=== PATIENT | male | born 1945 | race Caucasian/White ===

== ENCOUNTER → 2016-09-25 | Outpatient (CLI) | payer MEDICARE, OTHER ==
[2016-09-25 09:42] LABS: Basophils # (auto) 0.1 uL; Basophils % (auto) 0.5 % (0.0-2.0); Eosinophils # (auto) 0.4 uL; Eosinophils % (auto) 3.5 % (0.0-7.0); Hematocrit 40.4 % (41.0-53.0); Hemoglobin 13.6 g/dL (13.5-17.5); Lymphocytes % (auto) 27.4 % (10.0-50.0); Mean Corpuscular Hemoglobin 29.3 pg (28.0-32.0); Mean Corpuscular Hgb Conc. 33.5 g/dL (32.0-36.0); Mean Corpuscular Volume 87.4 fL (80.0-100.0); Mean Platelet Volume 7.6 fL (7.4-10.4); Monocytes # (auto) 0.7 uL; Monocytes % (auto) 6.7 % (0.0-12.0); Neutrophils # (auto) 6.7 uL; Neutrophils % (auto) 61.9 % (37.0-80.0); Platelet Count (auto) 418 10^3/uL (140-450); Red Cell Distribution Width 13.9 % (11.6-16.0); White Blood Cell 10.9 10^3/uL (4.4-10.8)
[2016-09-25 10:30] LABS: Albumin 3.5 g/dL (3.4-5.0); BUN/Creatinine Ratio 14.8; Bilirubin, Total 0.5 mg/dL (0.2-1.0); Calcium 9.7 mg/dL (8.5-10.1); Potassium 4.9 mmol/L (3.5-5.1); Total Protein 7.8 g/dL (6.4-8.2)
== END | disposition home or self-care (01) ==
LOC: LAB 09:02
PROVIDERS: ATTEND Internal Medicine
DX: E11.65 Type 2 diabetes mellitus with hyperglycemia (principal); I10 Essential (primary) hypertension; I48.2 Chronic atrial fibrillation; E03.9 Hypothyroidism, unspecified
CPT/HCPCS: 36415; 80053; 80061; 82306; 83036; 84443; 85025

== ENCOUNTER → 2016-10-07 | Outpatient (CLI) | payer MEDICARE, OTHER | END | disposition home or self-care (01) | LOC: XYW 09:00 | PROVIDERS: ATTEND Internal Medicine | DX: I50.9 Heart failure, unspecified (principal); I31.3 Pericardial effusion (noninflammatory); R07.9 Chest pain, unspecified | CPT/HCPCS: 93306 ==

== ENCOUNTER → 2016-12-10 | Outpatient (CLI) | payer MEDICARE, OTHER ==
[~2016-12-10] VITALS: Ht 177.8 cm; Wt 120.2 kg
[~2016-12-10] MED LIST: ADENOSINE 101 MG in GIVE UN-DILUTED 0 ML IV ONE
== END | disposition home or self-care (01) ==
LOC: XY 08:02
PROVIDERS: ATTEND Internal Medicine Cardiovascular Disease
DX: I50.9 Heart failure, unspecified (principal)
CPT/HCPCS: 78452; 93017; A9500; J0153

== ENCOUNTER → 2016-12-16 | Outpatient (CLI) | payer MEDICARE, OTHER ==
[2016-12-16 10:40] LABS: BUN/Creatinine Ratio 12.9; Calcium 9.4 mg/dL (8.5-10.1); Potassium 5.3 mmol/L (3.5-5.1)
== END | disposition home or self-care (01) ==
LOC: LAB 09:55
DX: C44.91 Basal cell carcinoma of skin, unspecified (principal)
CPT/HCPCS: 36415; 80048

== ENCOUNTER → 2016-12-22 | Outpatient (CLI) | payer MEDICARE, OTHER ==
[2016-12-22 10:35] LABS: Urine RBC None Seen /hpf (0 - 3)
[2016-12-22 10:37] LABS: Basophils # (auto) 0 uL; Basophils % (auto) 0.3 % (0.0-2.0); CONDITION Y; Eosinophils # (auto) 0.4 uL; Eosinophils % (auto) 3.5 % (0.0-7.0); Hematocrit 36.5 % (41.0-53.0); Hemoglobin 12.4 g/dL (13.5-17.5); Lymphocytes # (auto) 2.4 uL; Lymphocytes % (auto) 21.6 % (10.0-50.0); Mean Corpuscular Hemoglobin 30.1 pg (28.0-32.0); Mean Corpuscular Hgb Conc. 33.8 g/dL (32.0-36.0); Mean Platelet Volume 7.3 fL (7.4-10.4); Monocytes # (auto) 0.9 uL; Monocytes % (auto) 7.6 % (0.0-12.0); Neutrophils # (auto) 7.6 uL; Platelet Count (auto) 439 10^3/uL (140-450); Red Cell Distribution Width 13.9 % (11.6-16.0); White Blood Cell 11.3 10^3/uL (4.4-10.8)
[2016-12-22 10:44] LABS: Urine Bilirubin Negative (Negative); Urine Blood Negative /uL (Negative); Urine Color Yellow (Yellow); Urine Glucose TRACE mg/dL (Normal); Urine Hyaline Cast FEW /lpf (0 - 2); Urine Ketone Negative (Negative); Urine Nitrite Negative (Negative); Urine Urobilinogen Normal (Negative); Urine pH 6.5 (5.0-8.0)
[2016-12-22 10:50] LABS: INR 1.1 (0.9-1.15)
[2016-12-22 10:59] LABS: BUN/Creatinine Ratio 12.3; Calcium 9.5 mg/dL (8.5-10.1); Potassium 4.5 mmol/L (3.5-5.1)
== END | disposition home or self-care (01) ==
LOC: LAB 10:15
PROVIDERS: ATTEND Internal Medicine
DX: I10 Essential (primary) hypertension (principal); E11.9 Type 2 diabetes mellitus without complications
CPT/HCPCS: 36415; 80048; 81001; 83036; 85025; 85610

== ENCOUNTER → 2017-03-23 | Outpatient (CLI) | payer MEDICARE, OTHER ==
[2017-03-23 08:58] LABS: Basophils # (auto) 0.2 uL; Basophils % (auto) 1.1 % (0.0-2.0); Eosinophils # (auto) 0.5 uL; Eosinophils % (auto) 3.4 % (0.0-7.0); Hematocrit 36.4 % (41.0-53.0); Hemoglobin 12.3 g/dL (13.5-17.5); Lymphocytes # (auto) 3.5 uL; Lymphocytes % (auto) 25.9 % (10.0-50.0); Mean Corpuscular Hgb Conc. 33.7 g/dL (32.0-36.0); Mean Platelet Volume 7.1 fL (6.9-10.8); Monocytes # (auto) 1.1 uL; Neutrophils # (auto) 8.3 uL; Neutrophils % (auto) 61.6 % (37.0-80.0); Platelet Count (auto) 471 10^3/uL (140-450); Red Cell Distribution Width 14.1 % (11.8-14.3); White Blood Cell 13.5 10^3/uL (4.4-10.8)
[2017-03-23 09:20] LABS: Albumin 3.3 g/dL (3.4-5.0); BUN/Creatinine Ratio 23.8; Bilirubin, Total 0.4 mg/dL (0.2-1.0); Calcium 9.6 mg/dL (8.5-10.1); Potassium 4.6 mmol/L (3.5-5.1); Total Protein 7.8 g/dL (6.4-8.2)
== END | disposition home or self-care (01) ==
LOC: LAB 08:08
PROVIDERS: ATTEND Internal Medicine Cardiovascular Disease
DX: I50.9 Heart failure, unspecified (principal); I25.10 Atherosclerotic heart disease of native coronary artery without angina pectoris
CPT/HCPCS: 36415; 80053; 80061; 84443; 85025

== ENCOUNTER → 2017-07-27 | Outpatient (CLI) | payer MEDICARE, OTHER ==
[2017-07-27 07:28] LABS: Basophils # (auto) 0.1 uL; Eosinophils # (auto) 0.5 uL; Eosinophils % (auto) 4.1 % (0.0-7.0); Hematocrit 36.2 % (41.0-53.0); Hemoglobin 12.5 g/dL (13.5-17.5); Lymphocytes # (auto) 3.8 uL; Mean Corpuscular Hemoglobin 30.5 pg (28.0-32.0); Mean Corpuscular Hgb Conc. 34.6 g/dL (32.0-36.0); Mean Corpuscular Volume 88.3 fL (80.0-100.0); Neutrophils # (auto) 7.3 uL; Neutrophils % (auto) 56.9 % (37.0-80.0); Platelet Count (auto) 411 10^3/uL (140-450); Red Cell Distribution Width 12.5 % (11.8-14.3); White Blood Cell 12.8 10^3/uL (4.4-10.8)
[2017-07-27 07:58] LABS: Cholesterol 216 mg/dL (< 200); HDL Cholesterol 45 mg/dL (40-59); LDL Cholesterol 137 mg/dL (< 100); Triglycerides 352 mg/dL (< 150)
[2017-08-03 15:06] LABS: Urine Bacteria NONE SEEN /hpf (None Seen); Urine Blood Negative /uL (Negative); Urine Specific Gravity 1.014 (1.001-1.035); Urine WBC <1 /hpf (0 - 3)
== END | disposition home or self-care (01) ==
LOC: LAB 07:07
PROVIDERS: ATTEND Physician Assistant
DX: E16.9 Disorder of pancreatic internal secretion, unspecified (principal); E78.2 Mixed hyperlipidemia; N39.0 Urinary tract infection, site not specified
CPT/HCPCS: 36415; 80061; 81001; 82043; 83036; 85025

== ENCOUNTER 2018-03-30 20:54 | Inpatient (IN) | payer MEDICARE, OTHER ==
[~2018-03-30] VITALS: Ht 177.8 cm; Wt 127.1 kg
[2018-03-30 21:39] LABS: Basophils # (auto) 0.2 uL; Basophils % (auto) 1.3 % (0.0-2.0); Eosinophils # (auto) 0.1 uL; Eosinophils % (auto) 0.7 % (0.0-7.0); Hematocrit 36.9 % (41.0-53.0); Hemoglobin 12.4 g/dL (13.5-17.5); Lymphocytes # (auto) 1.4 uL; Lymphocytes % (auto) 9.3 % (10.0-50.0); Mean Corpuscular Hemoglobin 29.6 pg (28.0-32.0); Mean Corpuscular Hgb Conc. 33.7 g/dL (32.0-36.0); Mean Corpuscular Volume 88.1 fL (80.0-100.0); Monocytes # (auto) 1.1 uL; Monocytes % (auto) 7.3 % (0.0-12.0); Neutrophils # (auto) 12.2 uL; Neutrophils % (auto) 81.4 % (37.0-80.0); Platelet Count (auto) 495 10^3/uL (140-450); Red Blood Cells 4.19 10^6/uL (4.5-5.90); Red Cell Distribution Width 13.9 % (11.8-14.3)
[2018-03-30 21:51] LABS: BUN/Creatinine Ratio 8.8; Calcium 8.9 mg/dL (8.5-10.1); Potassium 4.2 mmol/L (3.5-5.1)
[2018-03-30 21:53] LABS: Bilirubin, Total 0.8 mg/dL (0.2-1.0); Total Protein 7.5 g/dL (6.4-8.2)
[2018-03-30 21:54] LABS: Lactic Acid w/Reflex 2.3 mmol/L (0.4-2.0)
[2018-03-30] MEDS ORDERED: ONDANSETRON HCL 4 MG/2 ML VIAL IV ONE (22:15)
[2018-03-30] MEDS ORDERED: cefTRIAXone 1GM/10ml IVPUSH 10 ML IV ONE (22:15)
[2018-03-30] MEDS ORDERED: VANCOMYCIN 1GM/250ML 250 ML IV ONE (22:15)
[2018-03-30] MEDS ORDERED: MORPHINE SULFATE 4 MG/ML SYR/VIAL IV ONE (22:15)
[2018-03-30 22:38] LABS: INR 1.02 (0.9-1.15); Magnesium 1.8 mg/dL (1.6-2.6); Partial Thromboplastin Time 28.9 sec (23.78-33.04); Prothrombin Time 10.9 sec (9.27-12.13)
[2018-03-31] VITALS (7 sets, daily range): BP systolic 124–158; BP diastolic 61–80
[2018-03-31] MEDS ORDERED: ONDANSETRON HCL 4 MG/2 ML VIAL IV PRN (02:30)
[2018-03-31] MEDS ORDERED: ACETAMINOPHEN 500 MG TAB PO PRN (02:30)
[2018-03-31] MEDS ORDERED: SODIUM CHLORIDE 0.9% 1,000 ML IV ONE (02:30)
[2018-03-31] MEDS ORDERED: DEXTROSE (50%) 50ML SYRG IV PRN (02:30)
[2018-03-31] MEDS ORDERED: RIVA20TA PO (04:44)
[2018-03-31] MEDS ORDERED: METF-370 PO (04:44)
[2018-03-31] MEDS ORDERED: FURO40TA4 PO (04:44)
[2018-03-31] MEDS ORDERED: GABA-339 PO (04:44)
[2018-03-31] MEDS ORDERED: GEMF600T7 PO (04:44)
[2018-03-31] MEDS ORDERED: GLIP-115 PO (04:44)
[2018-03-31] MEDS ORDERED: MET50T GT (04:44)
[2018-03-31] MEDS ORDERED: LEVO88TA4 PO (04:44)
[2018-03-31] MEDS ORDERED: EXENINJ SC (04:44)
[2018-03-31] MEDS ORDERED: POTA20TA53 PO (04:44)
[2018-03-31] MEDS ORDERED: LOSA100T33 PO (04:44)
[2018-03-31] MEDS: CLINDAMYCIN 600MG IV 50 ML IV SCH ×3 (06:27→22:29)
[2018-03-31] MEDS: LEVOTHYROXINE SODIUM 88 MCG TAB PO SCH (06:35)
[2018-03-31] MEDS: InsuLIN REG 1unit/0.01ml Soln (100units/ml) SC SCH ×4 (06:36→22:29)
[2018-03-31] MEDS: ACCU-CHEK COMFORT CURVE STRIP VI SCH ×4 (06:36→22:30)
[2018-03-31] MEDS ORDERED: metFORMIN HYDROCHLORIDE 500 MG TAB PO SCH (07:00)
[2018-03-31 08:02] LABS: Eosinophils # (auto) 0.1 uL; Eosinophils % (auto) 0.5 % (0.0-7.0); Hemoglobin 11.7 g/dL (13.5-17.5); Monocytes # (auto) 1.5 uL; Neutrophils # (auto) 12.1 uL
[2018-03-31 08:04] LABS: Basophils # (auto) 0 uL; Basophils % (auto) 0.3 % (0.0-2.0); Hematocrit 34.5 % (41.0-53.0); Lymphocytes # (auto) 2.3 uL; Lymphocytes % (auto) 14.2 % (10.0-50.0); Mean Corpuscular Hemoglobin 30.1 pg (28.0-32.0); Mean Corpuscular Hgb Conc. 33.9 g/dL (32.0-36.0); Mean Corpuscular Volume 88.7 fL (80.0-100.0); Monocytes % (auto) 9.6 % (0.0-12.0); Neutrophils % (auto) 75.4 % (37.0-80.0); Nucleated Red Blood Cells % 0.1 %; Platelet Count (auto) 472 10^3/uL (140-450); Red Blood Cells 3.89 10^6/uL (4.5-5.90); Red Cell Distribution Width 13.7 % (11.8-14.3)
[2018-03-31 08:20] LABS: BUN/Creatinine Ratio 9.1; Potassium 4.1 mmol/L (3.5-5.1)
[2018-03-31] MEDS: GABAPENTIN 300 MG CAP PO SCH ×2 (09:48→22:29)
[2018-03-31] MEDS: METOPROLOL TARTRATE 50 MG TAB PO SCH ×2 (09:48→22:29)
[2018-03-31] MEDS ORDERED: LOSARTAN POTASSIUM 50 MG TAB PO SCH (10:00)
[2018-03-31] MEDS ORDERED: LABETALOL HCL 5 MG/ML ML 20ML VIAL IV PRN (14:15)
[2018-03-31] MEDS ORDERED: RIVAROXABAN 20 MG TAB PO SCH ×2 (18:00)
[2018-03-31] MEDS: cefTRIAXone 1GM/10ml IVPUSH 10 ML IV SCH (22:29)
[2018-04-01 04:53] VITALS: BP 139/67
[2018-04-01] MEDS: CLINDAMYCIN 600MG IV 50 ML IV SCH ×3 (06:05→21:33)
[2018-04-01] MEDS: LEVOTHYROXINE SODIUM 88 MCG TAB PO SCH (06:05)
[2018-04-01] MEDS: ACCU-CHEK COMFORT CURVE STRIP VI SCH ×4 (06:12→22:14)
[2018-04-01] MEDS: InsuLIN REG 1unit/0.01ml Soln (100units/ml) SC SCH ×4 (06:12→21:33)
[2018-04-01 09:00] VITALS: BP 140/70
[2018-04-01] MEDS: METOPROLOL TARTRATE 50 MG TAB PO SCH ×2 (10:15→21:34)
[2018-04-01] MEDS: GABAPENTIN 300 MG CAP PO SCH ×2 (10:16→21:33)
[2018-04-01 10:53] LABS: Basophils # (auto) 0.1 uL; Basophils % (auto) 0.4 % (0.0-2.0); Eosinophils # (auto) 0.4 uL; Eosinophils % (auto) 2.6 % (0.0-7.0); Hematocrit 33.8 % (41.0-53.0); Hemoglobin 11.3 g/dL (13.5-17.5); Lymphocytes # (auto) 2.5 uL; Mean Corpuscular Hemoglobin 29.7 pg (28.0-32.0); Mean Corpuscular Hgb Conc. 33.5 g/dL (32.0-36.0); Mean Corpuscular Volume 88.5 fL (80.0-100.0); Monocytes # (auto) 1.3 uL; Monocytes % (auto) 9.1 % (0.0-12.0); Neutrophils # (auto) 10.5 uL; Neutrophils % (auto) 70.9 % (37.0-80.0); Platelet Count (auto) 444 10^3/uL (140-450); Red Blood Cells 3.81 10^6/uL (4.5-5.90); Red Cell Distribution Width 13.9 % (11.8-14.3); White Blood Cell 14.9 10^3/uL (4.4-10.8)
[2018-04-01 11:10] LABS: Calcium 8.6 mg/dL (8.5-10.1); Potassium 4.3 mmol/L (3.5-5.1)
[2018-04-01 13:00] VITALS: BP 130/95
[2018-04-01 17:00] VITALS: BP 135/79
[2018-04-01] MEDS ORDERED: RIVAROXABAN 20 MG TAB PO SCH (18:00)
[2018-04-01] MEDS: cefTRIAXone 1GM/10ml IVPUSH 10 ML IV SCH (21:33)
[2018-04-01 21:53] VITALS: BP 117/71
[2018-04-01] MEDS ORDERED: PNEUMOCOCCAL VACC POLYS 25 MCG/0.5 ML VIAL IM ONE (22:00)
[2018-04-01] MEDS ORDERED: INFLUENZA QUAD 2018-2019 0.5 ML SYRG IM ONE (22:00)
[2018-04-01 22:10] VITALS: BP 132/57
[2018-04-02 05:05] VITALS: BP 138/61
[2018-04-02 06:04] LABS: Basophils # (auto) 0.2 uL; Eosinophils # (auto) 0.4 uL; Eosinophils % (auto) 3.8 % (0.0-7.0); Hematocrit 32.8 % (41.0-53.0); Hemoglobin 11.1 g/dL (13.5-17.5); Lymphocytes # (auto) 2.9 uL; Lymphocytes % (auto) 24.8 % (10.0-50.0); Mean Corpuscular Hgb Conc. 33.9 g/dL (32.0-36.0); Mean Corpuscular Volume 88.6 fL (80.0-100.0); Monocytes % (auto) 8.9 % (0.0-12.0); Neutrophils # (auto) 7.1 uL; Neutrophils % (auto) 60.5 % (37.0-80.0); Nucleated Red Blood Cells % 0.1 %; Platelet Count (auto) 396 10^3/uL (140-450); Red Cell Distribution Width 13.6 % (11.8-14.3); White Blood Cell 11.7 10^3/uL (4.4-10.8)
[2018-04-02] MEDS: InsuLIN REG 1unit/0.01ml Soln (100units/ml) SC SCH ×2 (06:26→11:30)
[2018-04-02] MEDS: CLINDAMYCIN 600MG IV 50 ML IV SCH (06:26)
[2018-04-02] MEDS: LEVOTHYROXINE SODIUM 88 MCG TAB PO SCH (06:26)
[2018-04-02] MEDS: ACCU-CHEK COMFORT CURVE STRIP VI SCH ×2 (06:27→11:30)
[2018-04-02 06:35] LABS: Potassium 4.1 mmol/L (3.5-5.1)
[2018-04-02 06:53] LABS: BUN/Creatinine Ratio 16.6; Calcium 8.9 mg/dL (8.5-10.1)
[2018-04-02] MEDS ORDERED: glipiZIDE 5 MG TAB PO SCH (07:00)
[2018-04-02 09:00] VITALS: BP 125/45
[2018-04-02] MEDS ORDERED: CLIN1CAP4 PO (09:30)
[2018-04-02] MEDS: METOPROLOL TARTRATE 50 MG TAB PO SCH (09:56)
[2018-04-02] MEDS: GABAPENTIN 300 MG CAP PO SCH (09:56)
[2018-04-02 10:22] VITALS: BP 125/45
== END 2018-04-02 13:05 | disposition home health service (06) | DRG 871 ==
LOC: ER 20:58 → TELE 20:59 → TELE-WESTW 03-31 03:40 → WEST WING 04-01 09:30
PROVIDERS: ADMIT Nurse Practitioner Family; ATTEND Internal Medicine
DX: A41.9 Sepsis, unspecified organism (principal); N17.0 Acute kidney failure with tubular necrosis; L03.211 Cellulitis of face; L03.213 Periorbital cellulitis; E44.1 Mild protein-calorie malnutrition; Z68.41 Body mass index [BMI] 40.0-44.9, adult; I13.0 Hypertensive heart and chronic kidney disease with heart failure and stage 1 through stage 4 chronic kidney disease, or unspecified chronic kidney disease; K04.7 Periapical abscess without sinus; E11.21 Type 2 diabetes mellitus with diabetic nephropathy; E03.9 Hypothyroidism, unspecified; E11.22 Type 2 diabetes mellitus with diabetic chronic kidney disease; E11.40 Type 2 diabetes mellitus with diabetic neuropathy, unspecified; E66.01 Morbid (severe) obesity due to excess calories; E78.5 Hyperlipidemia, unspecified; I25.10 Atherosclerotic heart disease of native coronary artery without angina pectoris; I48.91 Unspecified atrial fibrillation; I50.9 Heart failure, unspecified; N18.3 Chronic kidney disease, stage 3 (moderate); Z82.3 Family history of stroke; Z82.49 Family history of ischemic heart disease and other diseases of the circulatory system; Z83.3 Family history of diabetes mellitus; Z23 Encounter for immunization; Z90.89 Acquired absence of other organs
CPT/HCPCS: 36415; 70486; 71045; 80048; 80053; 82962; 83036; 83605; 83735; 83880; 84443; 84484; 85025; 85610; 85730; 87040; 90674; 93005; 94761; 96361; 96365; 96375; A6257; J0696; J1815; J2405; J3490

== ENCOUNTER → 2018-04-26 | Outpatient (CLI) | payer MEDICARE, OTHER ==
[~2018-04-26] MED LIST changes: -ADENOSINE 101 MG in GIVE UN-DILUTED 0 ML IV ONE; +CLIN1CAP4 PO; +EXENINJ SC; +FURO40TA4 PO; +GABA-339 PO; +GEMF600T7 PO; +GLIP-115 PO; +LEVO88TA4 PO; +LOSA100T33 PO; +MET50T GT; +METF-370 PO; +POTA20TA53 PO; +RIVA20TA PO
[2018-04-26 08:52] LABS: Albumin 3.1 g/dL (3.4-5.0); BUN/Creatinine Ratio 14.4; Calcium 10.1 mg/dL (8.5-10.1); Potassium 4.7 mmol/L (3.5-5.1)
[2018-04-26 08:56] LABS: Bilirubin, Total 0.6 mg/dL (0.2-1.0); Total Protein 7.7 g/dL (6.4-8.2)
[2018-04-26 09:04] LABS: Basophils # (auto) 0.2 uL; Basophils % (auto) 1.1 % (0.0-2.0); Eosinophils # (auto) 0.7 uL; Eosinophils % (auto) 5.1 % (0.0-7.0); Hematocrit 37.2 % (41.0-53.0); Hemoglobin 12.3 g/dL (13.5-17.5); Lymphocytes # (auto) 2.7 uL; Lymphocytes % (auto) 20.4 % (10.0-50.0); Mean Corpuscular Hemoglobin 29.4 pg (28.0-32.0); Mean Corpuscular Hgb Conc. 33.1 g/dL (32.0-36.0); Mean Corpuscular Volume 88.6 fL (80.0-100.0); Monocytes # (auto) 1.1 uL; Neutrophils # (auto) 8.8 uL; Neutrophils % (auto) 65.4 % (37.0-80.0); Platelet Count (auto) 421 10^3/uL (140-450); Red Cell Distribution Width 13.8 % (11.8-14.3); White Blood Cell 13.4 10^3/uL (4.4-10.8)
[2018-04-26 15:26] LABS: Urine Bacteria NONE SEEN /hpf (None Seen); Urine Blood Negative /uL (Negative); Urine Specific Gravity 1.009 (1.001-1.035); Urine WBC <1 /hpf (0 - 3)
== END | disposition home or self-care (01) ==
LOC: LAB 07:40
PROVIDERS: ATTEND Physician Assistant
DX: Z12.5 Encounter for screening for malignant neoplasm of prostate (principal); I12.9 Hypertensive chronic kidney disease with stage 1 through stage 4 chronic kidney disease, or unspecified chronic kidney disease; E11.22 Type 2 diabetes mellitus with diabetic chronic kidney disease; N18.9 Chronic kidney disease, unspecified; I48.2 Chronic atrial fibrillation; I42.9 Cardiomyopathy, unspecified; E78.1 Pure hyperglyceridemia; I25.5 Ischemic cardiomyopathy; E03.9 Hypothyroidism, unspecified
CPT/HCPCS: 36415; 80053; 80061; 81001; 83036; 84153; 84443; 85025

== ENCOUNTER → 2018-06-03 | Outpatient (CLI) | payer MEDICARE, OTHER | END | disposition home or self-care (01) | LOC: XYW 10:40 | PROVIDERS: ATTEND Internal Medicine Cardiovascular Disease | DX: I25.5 Ischemic cardiomyopathy (principal) | CPT/HCPCS: 93306 ==

== ENCOUNTER → 2019-03-23 | Outpatient (CLI) | payer MEDICARE, OTHER ==
[~2019-03-23] MED LIST changes: -CLIN1CAP4 PO; +CLIN300C8 PO; -GLIP-115 PO; +GLIP5TAB12 PO; +POTA-220 PO; -POTA20TA53 PO
== END | disposition home or self-care (01) ==
LOC: XYW 10:33
PROVIDERS: ATTEND Internal Medicine
DX: I08.8 Other rheumatic multiple valve diseases (principal); I42.9 Cardiomyopathy, unspecified; I13.0 Hypertensive heart and chronic kidney disease with heart failure and stage 1 through stage 4 chronic kidney disease, or unspecified chronic kidney disease; I50.9 Heart failure, unspecified; N18.3 Chronic kidney disease, stage 3 (moderate)
CPT/HCPCS: 93306

== ENCOUNTER → 2019-06-10 | Outpatient (CLI) | payer MEDICARE, OTHER ==
[~2019-06-10] VITALS: Ht 177.8 cm; Wt 113.4 kg
[~2019-06-10] MED LIST changes: +ADENOSINE 95 MG in GIVE UN-DILUTED 0 ML IV ONE; +ADENOSINE 95 MG in GIVE UN-DILUTED 0 ML IV STA
== END | disposition home or self-care (01) ==
LOC: XY 07:42
PROVIDERS: ATTEND Internal Medicine
DX: I42.9 Cardiomyopathy, unspecified (principal)
CPT/HCPCS: 78452; 93017; A9500; J0153

== ENCOUNTER → 2021-11-18 | Outpatient (CLI) | payer MEDICARE, OTHER ==
[~2021-11-18] MED LIST changes: -ADENOSINE 95 MG in GIVE UN-DILUTED 0 ML IV ONE; -ADENOSINE 95 MG in GIVE UN-DILUTED 0 ML IV STA; +GEMF-19 PO; -GEMF600T7 PO
[2021-11-18 07:57] LABS: Basophils # (auto) 0.1 10 ^3/uL (0-0.2); Basophils % (auto) 0.7 % (0.0-2.0); Eosinophils # (auto) 0.7 10 ^3/uL (0-0.8); Eosinophils % (auto) 5.9 % (0.0-7.0); Hematocrit 35.3 % (41.0-53.0); Hemoglobin 12.1 g/dL (13.5-17.5); Lymphocytes # (auto) 2.8 10 ^3/uL (0.4-5.4); Lymphocytes % (auto) 24.6 % (10.0-50.0); Mean Corpuscular Hemoglobin 29.5 pg (28.0-32.0); Mean Corpuscular Hgb Conc. 34.4 g/dL (32.0-36.0); Mean Corpuscular Volume 85.9 fL (80.0-100.0); Monocytes # (auto) 0.9 10 ^3/uL (0-1.3); Monocytes % (auto) 7.6 % (0.0-12.0); Neutrophils % (auto) 61.2 % (37.0-80.0); Nucleated Red Blood Cells % 0.1 %; Red Blood Cells 4.11 10^6/uL (4.5-5.90); Red Cell Distribution Width 13.7 % (11.8-14.3); White Blood Cell 11.5 10^3/uL (4.4-10.8)
[2021-11-18 08:30] LABS: Albumin 3.3 g/dL (3.4-5.0); Calcium 9.1 mg/dL (8.5-10.1); Potassium 3.8 mmol/L (3.5-5.1)
[2021-11-18 08:35] LABS: BUN/Creatinine Ratio 26.1; Bilirubin, Total 0.7 mg/dL (0.2-1.0); Total Protein 7.8 g/dL (6.4-8.2)
[2021-11-18 10:12] LABS: Free T4 (Free Thyroxine) 1.16 ng/dL (0.89-1.76)
[2021-11-18 10:13] LABS: Prostate Specific Antigen 0.79 ng/mL (0.0-4.0)
== END | disposition home or self-care (01) ==
LOC: LAB 07:34
PROVIDERS: ATTEND Nurse Practitioner Family
DX: I12.9 Hypertensive chronic kidney disease with stage 1 through stage 4 chronic kidney disease, or unspecified chronic kidney disease (principal); E11.22 Type 2 diabetes mellitus with diabetic chronic kidney disease; N18.9 Chronic kidney disease, unspecified; E03.9 Hypothyroidism, unspecified; E78.1 Pure hyperglyceridemia; Z00.00 Encounter for general adult medical examination without abnormal findings
CPT/HCPCS: 36415; 80053; 80061; 83036; 84153; 84439; 84443; 85025